=== PATIENT | male | born 1960 | race Caucasian/White ===

== ENCOUNTER 2020-11-02 05:39 | Inpatient (IN) | payer MEDICAID ==
[~2020-11-02] VITALS: Ht 177.8 cm; Wt 118.0 kg
[~2020-11-02 05:39] MED LIST: ASPI-543 PO; ATOR10TA PO; CHOL20007 PO; CLOP75TA41 PO; MET50T PO
[2020-11-02 06:33] LABS: Basophils # (auto) 0 10 ^3/uL (0-0.2); Basophils % (auto) 0.3 % (0.0-2.0); Eosinophils # (auto) 0 10 ^3/uL (0-0.8); Hematocrit 44.2 % (41.0-53.0); Hemoglobin 15.6 g/dL (13.5-17.5); Lymphocytes # (auto) 0.6 10 ^3/uL (0.4-5.4); Lymphocytes % (auto) 9.9 % (10.0-50.0); Mean Corpuscular Hemoglobin 32.5 pg (28.0-32.0); Mean Corpuscular Hgb Conc. 35.4 g/dL (32.0-36.0); Monocytes # (auto) 0.4 10 ^3/uL (0-1.3); Monocytes % (auto) 7.1 % (0.0-12.0); Neutrophils # (auto) 5.1 10 ^3/uL (1.6-8.6); Neutrophils % (auto) 82.7 % (37.0-80.0); Nucleated Red Blood Cells % 0.1 %; Platelet Count (auto) 111 10^3/uL (140-450); Red Cell Distribution Width 13.5 % (11.8-14.3); White Blood Cell 6.2 10^3/uL (4.4-10.8)
[2020-11-02 06:47] LABS: INR 3.39 (0.9-1.15); Partial Thromboplastin Time 48.1 sec (23.0-31.2)
[2020-11-02 06:51] LABS: Anion Gap 10 (5-15); Blood Urea Nitrogen 24 mg/dL (7-18); Carbon Dioxide 20 mmol/L (21-32); Chloride 99 mmol/L (98-107); Glucose 122 mg/dL (74-106); Potassium 3.7 mmol/L (3.5-5.1); Sodium 129 mmol/L (136-145)
[2020-11-02 06:59] LABS: Alanine Aminotransferase 46 U/L (16-61); Albumin 3.1 g/dL (3.4-5.0); Alkaline Phosphatase 58 U/L (45-117); Aspartate Aminotransferase 93 U/L (15-37); BUN/Creatinine Ratio 17.3; Bilirubin, Total 1.1 mg/dL (0.2-1.0); GFR African American 67 mL/min; GFR Non-African American 55 mL/min
[2020-11-02] MEDS ORDERED: cefTRIAXone 1GM/50ML D5W 50 ML IV ONE (07:45)
[2020-11-02] MEDS ORDERED: AMIODARONE HCL 150 MG in D5W 5% 100 ML IV ONE (07:45)
[2020-11-02] MEDS ORDERED: AMIODARONE 450mg/250ml AE 250 ML IV SCH (08:00)
[2020-11-02] MEDS ORDERED: AZITHROMYCIN 500MG/ 250ML 250 ML IV ONE (08:15)
[2020-11-02] MEDS ORDERED: DexAMETHasone SOD PHOS 10MG/1ML VIAL INJ IV ONE (08:15)
[2020-11-02] MEDS: NOREPINEPHRINE 8 MG/250ML KIT 250 ML IV SCH (11:46)
[2020-11-02] MEDS: AMIODARONE 450mg/250ml AE 250 ML IV SCH ×2 (14:00→22:17)
[2020-11-02] MEDS ORDERED: ACETAMINOPHEN 325 MG TAB PO PRN (14:45)
[2020-11-02] MEDS ORDERED: MORPHINE SULF INJ 2 MG/ML SYRINGE 1ML IV PRN (14:45)
[2020-11-02] MEDS ORDERED: ONDANSETRON HCL 4 MG/2 ML VIAL IV PRN (14:45)
[2020-11-02] MEDS ORDERED: NITROGLYCERIN 0.4 MG SL TAB SL PRN (14:45)
[2020-11-02] MEDS ORDERED: DOCUSATE SOD 100 MG CAP PO PRN (14:45)
[2020-11-02] MEDS ORDERED: TEMAZEPAM 15 MG CAP PO PRN (14:45)
[2020-11-02] MEDS ORDERED: MORPHINE SULFATE 4 MG/ML SYR/VIAL IV PRN (14:45)
[2020-11-02] MEDS: ENOXAPARIN SOD 100 MG/1 ML SYRINGE SC SCH (14:48)
[2020-11-02] MEDS: FAMOTIDINE 20 MG TAB PO SCH (22:22)
[2020-11-03] MEDS: ENOXAPARIN SOD 100 MG/1 ML SYRINGE SC SCH ×2 (03:15→14:48)
[2020-11-03 05:20] LABS: Basophils # (auto) 0 10 ^3/uL (0-0.2); Basophils % (auto) 0.1 % (0.0-2.0); Eosinophils # (auto) 0 10 ^3/uL (0-0.8); Hematocrit 40.9 % (41.0-53.0); Hemoglobin 14.5 g/dL (13.5-17.5); Lymphocytes # (auto) 0.7 10 ^3/uL (0.4-5.4); Lymphocytes % (auto) 9.2 % (10.0-50.0); Mean Corpuscular Hemoglobin 32.3 pg (28.0-32.0); Mean Corpuscular Hgb Conc. 35.4 g/dL (32.0-36.0); Mean Corpuscular Volume 91.2 fL (80.0-100.0); Monocytes # (auto) 0.6 10 ^3/uL (0-1.3); Monocytes % (auto) 7.6 % (0.0-12.0); Neutrophils # (auto) 6.1 10 ^3/uL (1.6-8.6); Neutrophils % (auto) 83.1 % (37.0-80.0); Platelet Count (auto) 113 10^3/uL (140-450); Red Blood Cells 4.49 10^6/uL (4.5-5.90); Red Cell Distribution Width 13.2 % (11.8-14.3); White Blood Cell 7.4 10^3/uL (4.4-10.8)
[2020-11-03 05:37] LABS: Albumin 2.7 g/dL (3.4-5.0); Calcium 7.5 mg/dL (8.5-10.1); Potassium 4.1 mmol/L (3.5-5.1)
[2020-11-03 05:41] LABS: BUN/Creatinine Ratio 19.6; Bilirubin, Total 0.6 mg/dL (0.2-1.0); Total Protein 6.2 g/dL (6.4-8.2)
[2020-11-03] MEDS: AMIODARONE 450mg/250ml AE 250 ML IV SCH (06:00)
[2020-11-03] MEDS: NOREPINEPHRINE 8 MG/250ML KIT 250 ML IV SCH (07:45)
[2020-11-03] MEDS: FAMOTIDINE 20 MG TAB PO SCH (10:00)
[2020-11-03] MEDS: ZINC SULFATE 220mg CAP or TAB PO SCH (10:00)
[2020-11-03] MEDS: DexAMETHasone SOD PHOS 10MG/1ML VIAL INJ IV SCH (11:11)
[2020-11-03] MEDS: HYDROcodone-ACET 5/325MG TAB PO PRN (11:11)
[2020-11-03] MEDS: AZITHROMYCIN 500MG/ 250ML 250 ML IV SCH (14:00)
[2020-11-03] MEDS ORDERED: ASPirin 81 mg TAB PO ONE (16:00)
[2020-11-03] MEDS: dilTIAZem 25 MG/5 ML VIAL IV SCH ×2 (16:15→17:40)
[2020-11-04] MEDS: dilTIAZem 25 MG/5 ML VIAL IV SCH ×2 (01:29→06:11)
[2020-11-04] MEDS: FAMOTIDINE 20 MG TAB PO SCH ×3 (01:29→22:00)
[2020-11-04 05:32] LABS: Basophils # (auto) 0 10 ^3/uL (0-0.2); Basophils % (auto) 0.1 % (0.0-2.0); Eosinophils # (auto) 0 10 ^3/uL (0-0.8); Hematocrit 42.4 % (41.0-53.0); Hemoglobin 14.7 g/dL (13.5-17.5); Lymphocytes # (auto) 0.6 10 ^3/uL (0.4-5.4); Lymphocytes % (auto) 5.2 % (10.0-50.0); Mean Corpuscular Hemoglobin 31.9 pg (28.0-32.0); Mean Corpuscular Hgb Conc. 34.6 g/dL (32.0-36.0); Mean Corpuscular Volume 92.1 fL (80.0-100.0); Monocytes # (auto) 0.5 10 ^3/uL (0-1.3); Monocytes % (auto) 4.7 % (0.0-12.0); Neutrophils # (auto) 10.4 10 ^3/uL (1.6-8.6); Platelet Count (auto) 147 10^3/uL (140-450); Red Cell Distribution Width 13.7 % (11.8-14.3); White Blood Cell 11.6 10^3/uL (4.4-10.8)
[2020-11-04 05:49] LABS: Calcium 7.7 mg/dL (8.5-10.1); Potassium 4.5 mmol/L (3.5-5.1)
[2020-11-04 06:07] LABS: BUN/Creatinine Ratio 22.5
[2020-11-04] MEDS: NOREPINEPHRINE 8 MG/250ML KIT 250 ML IV SCH (07:45)
[2020-11-04 08:10] LABS: INR 5.86 (0.9-1.15)
[2020-11-04] MEDS ORDERED: REMDESIVIR PER PHARMACY 0 ML IV SCH (10:00)
[2020-11-04] MEDS ORDERED: ASPirin-EC 81 mg tab PO SCH (10:00)
[2020-11-04] MEDS ORDERED: ENOXAPARIN SOD 100 MG/1 ML SYRINGE SC SCH (10:00)
[2020-11-04] MEDS: ENOXAPARIN SOD 100 MG/1 ML SYRINGE SC SCH ×2 (10:34→22:00)
[2020-11-04] MEDS: CLOPIDOGREL BISULFATE 75 MG TAB PO SCH (10:38)
[2020-11-04] MEDS: DexAMETHasone SOD PHOS 10MG/1ML VIAL INJ IV SCH (10:47)
[2020-11-04] MEDS: PANTOPRAZOLE 40 MG/10 ML VIAL INJ IV SCH (10:49)
[2020-11-04] MEDS: ZINC SULFATE 220mg CAP or TAB PO SCH (10:49)
[2020-11-04] MEDS: AZITHROMYCIN 500MG/ 250ML 250 ML IV SCH (10:49)
[2020-11-04] MEDS: ASCORBIC ACID 500 MG TAB PO SCH (10:50)
[2020-11-04] MEDS: CHOLECALCIFEROL (VITD3) 1,000UNIT=25mCg TAB PO SCH (10:50)
[2020-11-04] MEDS: AMIODARONE 450mg/250ml AE 250 ML IV SCH (11:06)
[2020-11-04] MEDS: HYDROcodone-ACET 5/325MG TAB PO PRN (11:09)
[2020-11-04] MEDS ORDERED: dilTIAZem 25 MG/5 ML VIAL IV PRN (12:15)
[2020-11-04 15:24] LABS: Albumin 2.8 g/dL (3.4-5.0); Bilirubin, Direct 0.2 mg/dL (0-0.2)
[2020-11-04 15:26] LABS: Bilirubin, Total 0.7 mg/dL (0.2-1.0); Total Protein 6.4 g/dL (6.4-8.2)
[2020-11-04] MEDS ORDERED: REMDESIVIR 200 MG in NS 210ml LOADING DOSE ADULT IV ONE (17:00)
[2020-11-04] MEDS: dilTIAZem 25 MG/5 ML VIAL IV PRN (19:33)
[2020-11-04] MEDS: AMIODARONE HCL 200 MG TAB PO SCH (22:00)
[2020-11-05 05:38] LABS: Basophils # (auto) 0 10 ^3/uL (0-0.2); Basophils % (auto) 0.1 % (0.0-2.0); Eosinophils # (auto) 0 10 ^3/uL (0-0.8); Hematocrit 43.5 % (41.0-53.0); Hemoglobin 15.3 g/dL (13.5-17.5); Lymphocytes # (auto) 0.5 10 ^3/uL (0.4-5.4); Lymphocytes % (auto) 4.3 % (10.0-50.0); Mean Corpuscular Hemoglobin 32.2 pg (28.0-32.0); Mean Corpuscular Hgb Conc. 35.1 g/dL (32.0-36.0); Mean Corpuscular Volume 91.8 fL (80.0-100.0); Monocytes # (auto) 0.5 10 ^3/uL (0-1.3); Monocytes % (auto) 4.6 % (0.0-12.0); Neutrophils # (auto) 9.6 10 ^3/uL (1.6-8.6); Platelet Count (auto) 166 10^3/uL (140-450); Red Blood Cells 4.74 10^6/uL (4.5-5.90); Red Cell Distribution Width 13.4 % (11.8-14.3); White Blood Cell 10.6 10^3/uL (4.4-10.8)
[2020-11-05] MEDS: dilTIAZem 25 MG/5 ML VIAL IV PRN ×2 (05:38→14:52)
[2020-11-05 05:52] LABS: BUN/Creatinine Ratio 22.8; Calcium 7.9 mg/dL (8.5-10.1); Magnesium 2.6 mg/dL (1.6-2.6); Potassium 4.3 mmol/L (3.5-5.1)
[2020-11-05 05:55] LABS: Total Protein 6.6 g/dL (6.4-8.2)
[2020-11-05 06:03] LABS: INR 5.01 (0.9-1.15)
[2020-11-05] MEDS: NOREPINEPHRINE 8 MG/250ML KIT 250 ML IV SCH (08:40)
[2020-11-05] MEDS: PANTOPRAZOLE 40 MG/10 ML VIAL INJ IV SCH (10:00)
[2020-11-05] MEDS: AMIODARONE HCL 200 MG TAB PO SCH ×2 (10:21→21:54)
[2020-11-05] MEDS: ZINC SULFATE 220mg CAP or TAB PO SCH (10:21)
[2020-11-05] MEDS: AZITHROMYCIN 500MG/ 250ML 250 ML IV SCH (10:22)
[2020-11-05] MEDS: DexAMETHasone SOD PHOS 10MG/1ML VIAL INJ IV SCH (10:22)
[2020-11-05] MEDS: CHOLECALCIFEROL (VITD3) 1,000UNIT=25mCg TAB PO SCH (10:22)
[2020-11-05] MEDS: FAMOTIDINE 20 MG TAB PO SCH ×2 (10:22→22:04)
[2020-11-05] MEDS: CLOPIDOGREL BISULFATE 75 MG TAB PO SCH (10:22)
[2020-11-05] MEDS: ASCORBIC ACID 500 MG TAB PO SCH (10:22)
[2020-11-05 10:45] LABS: CRP High Sensitivity 3.21 mg/dL (< 0.3)
[2020-11-05] MEDS: REMDESIVIR 100 MG in SODIUM CHL 0.9% 250 ML IV SCH (14:52)
[2020-11-05] MEDS: METOPROLOL TARTRATE 25 MG TAB PO SCH ×4 (15:00→22:04)
[2020-11-05] MEDS: Glucerna Carbsteady SHAKE Vanilla 8oz PO SCH (17:49)
[2020-11-06 06:17] LABS: Basophils # (auto) 0 10 ^3/uL (0-0.2); Basophils % (auto) 0.1 % (0.0-2.0); Eosinophils # (auto) 0 10 ^3/uL (0-0.8); Hematocrit 43.6 % (41.0-53.0); Hemoglobin 15.2 g/dL (13.5-17.5); Lymphocytes # (auto) 0.5 10 ^3/uL (0.4-5.4); Lymphocytes % (auto) 3.8 % (10.0-50.0); Mean Corpuscular Hemoglobin 32.1 pg (28.0-32.0); Mean Corpuscular Volume 91.7 fL (80.0-100.0); Monocytes # (auto) 0.8 10 ^3/uL (0-1.3); Monocytes % (auto) 5.4 % (0.0-12.0); Neutrophils % (auto) 90.7 % (37.0-80.0); Nucleated Red Blood Cells % 0.1 %; Platelet Count (auto) 127 10^3/uL (140-450); Red Blood Cells 4.75 10^6/uL (4.5-5.90); Red Cell Distribution Width 13.3 % (11.8-14.3); White Blood Cell 14.3 10^3/uL (4.4-10.8)
[2020-11-06] MEDS: METOPROLOL TARTRATE 25 MG TAB PO SCH ×3 (06:25→20:37)
[2020-11-06 07:03] LABS: Albumin 2.9 g/dL (3.4-5.0); Calcium 7.8 mg/dL (8.5-10.1); Magnesium 2.4 mg/dL (1.6-2.6); Potassium 4.4 mmol/L (3.5-5.1)
[2020-11-06 07:05] LABS: INR 5.48 (0.9-1.15)
[2020-11-06 07:12] LABS: BUN/Creatinine Ratio 25.6; Bilirubin, Total 1.8 mg/dL (0.2-1.0); Total Protein 6.3 g/dL (6.4-8.2)
[2020-11-06 07:33] LABS: CRP High Sensitivity 2.1 mg/dL (< 0.3)
[2020-11-06] MEDS: PANTOPRAZOLE 40 MG/10 ML VIAL INJ IV SCH (08:55)
[2020-11-06] MEDS: FAMOTIDINE 20 MG TAB PO SCH ×2 (08:55→20:37)
[2020-11-06] MEDS: Glucerna Carbsteady SHAKE Vanilla 8oz PO SCH ×3 (09:02→18:00)
[2020-11-06] MEDS: NOREPINEPHRINE 8 MG/250ML KIT 250 ML IV SCH (09:02)
[2020-11-06] MEDS: DexAMETHasone SOD PHOS 10MG/1ML VIAL INJ IV SCH (09:52)
[2020-11-06] MEDS: AZITHROMYCIN 500MG/ 250ML 250 ML IV SCH (09:55)
[2020-11-06] MEDS: ZINC SULFATE 220mg CAP or TAB PO SCH (09:56)
[2020-11-06] MEDS: AMIODARONE HCL 200 MG TAB PO SCH ×2 (09:59→20:36)
[2020-11-06] MEDS: CHOLECALCIFEROL (VITD3) 1,000UNIT=25mCg TAB PO SCH (10:00)
[2020-11-06] MEDS: ASCORBIC ACID 500 MG TAB PO SCH (10:00)
[2020-11-06] MEDS: CLOPIDOGREL BISULFATE 75 MG TAB PO SCH (10:03)
[2020-11-06] MEDS: dilTIAZem 25 MG/5 ML VIAL IV PRN ×2 (13:01→20:35)
[2020-11-06] MEDS: REMDESIVIR 100 MG in SODIUM CHL 0.9% 250 ML IV SCH (17:39)
[2020-11-06] MEDS: LORazepam 0.5 MG TAB PO PRN (17:41)
[2020-11-07] MEDS: METOPROLOL TARTRATE 25 MG TAB PO SCH ×3 (05:49→21:53)
[2020-11-07 07:05] LABS: Basophils # (auto) 0 10 ^3/uL (0-0.2); Basophils % (auto) 0.2 % (0.0-2.0); Eosinophils # (auto) 0 10 ^3/uL (0-0.8); Hematocrit 43.5 % (41.0-53.0); Hemoglobin 15.2 g/dL (13.5-17.5); Lymphocytes # (auto) 0.6 10 ^3/uL (0.4-5.4); Lymphocytes % (auto) 4.1 % (10.0-50.0); Mean Corpuscular Hemoglobin 31.9 pg (28.0-32.0); Mean Corpuscular Hgb Conc. 34.9 g/dL (32.0-36.0); Mean Corpuscular Volume 91.4 fL (80.0-100.0); Monocytes # (auto) 0.8 10 ^3/uL (0-1.3); Monocytes % (auto) 5.1 % (0.0-12.0); Neutrophils # (auto) 14.2 10 ^3/uL (1.6-8.6); Neutrophils % (auto) 90.6 % (37.0-80.0); Nucleated Red Blood Cells % 0.4 %; Platelet Count (auto) 97 10^3/uL (140-450); Red Blood Cells 4.76 10^6/uL (4.5-5.90); Red Cell Distribution Width 13.5 % (11.8-14.3); White Blood Cell 15.6 10^3/uL (4.4-10.8)
[2020-11-07 07:27] LABS: Potassium 4.6 mmol/L (3.5-5.1)
[2020-11-07] MEDS: NOREPINEPHRINE 8 MG/250ML KIT 250 ML IV SCH (07:45)
[2020-11-07 07:54] LABS: Albumin 2.8 g/dL (3.4-5.0); BUN/Creatinine Ratio 27.2; Bilirubin, Total 2.2 mg/dL (0.2-1.0); CRP High Sensitivity 1.9 mg/dL (< 0.3); Calcium 7.8 mg/dL (8.5-10.1); Magnesium 2.1 mg/dL (1.6-2.6)
[2020-11-07 08:42] LABS: INR 5.65 (0.9-1.15)
[2020-11-07] MEDS: Glucerna Carbsteady SHAKE Vanilla 8oz PO SCH ×3 (09:39→18:00)
[2020-11-07] MEDS: DexAMETHasone SOD PHOS 10MG/1ML VIAL INJ IV SCH (09:52)
[2020-11-07] MEDS: PANTOPRAZOLE 40 MG/10 ML VIAL INJ IV SCH (09:53)
[2020-11-07] MEDS: AZITHROMYCIN 500MG/ 250ML 250 ML IV SCH (09:54)
[2020-11-07] MEDS: FAMOTIDINE 20 MG TAB PO SCH ×2 (09:54→21:50)
[2020-11-07] MEDS: AMIODARONE HCL 200 MG TAB PO SCH ×2 (09:54→21:50)
[2020-11-07] MEDS: ZINC SULFATE 220mg CAP or TAB PO SCH (09:54)
[2020-11-07] MEDS: CLOPIDOGREL BISULFATE 75 MG TAB PO SCH (09:54)
[2020-11-07] MEDS: CHOLECALCIFEROL (VITD3) 1,000UNIT=25mCg TAB PO SCH (09:55)
[2020-11-07] MEDS: ASCORBIC ACID 500 MG TAB PO SCH (09:55)
[2020-11-07] MEDS: dilTIAZem 25 MG/5 ML VIAL IV PRN (11:55)
[2020-11-07] MEDS: REMDESIVIR 100 MG in SODIUM CHL 0.9% 250 ML IV SCH (15:00)
[2020-11-07 15:30] VITALS: BP 101/76
[2020-11-07 15:45] VITALS: BP 87/63
[2020-11-07 16:00] VITALS: BP 110/76
[2020-11-08 06:12] LABS: Hematocrit 42.9 % (41.0-53.0); Hemoglobin 14.9 g/dL (13.5-17.5); Mean Corpuscular Hemoglobin 31.7 pg (28.0-32.0); Mean Corpuscular Hgb Conc. 34.8 g/dL (32.0-36.0); Mean Corpuscular Volume 90.9 fL (80.0-100.0); Platelet Count (auto) 82 10^3/uL (140-450); Red Blood Cells 4.72 10^6/uL (4.5-5.90); Red Cell Distribution Width 13.4 % (11.8-14.3); White Blood Cell 12.8 10^3/uL (4.4-10.8)
[2020-11-08 06:18] LABS: Basophils % (manual) 0 (0.0-2.0); Blast Cells 0; Eosinophils % (manual) 0 (0-7); Myelocytes % 0; Promyelocytes % 0; Reactive Lymphocytes 0
[2020-11-08] MEDS: METOPROLOL TARTRATE 25 MG TAB PO SCH ×2 (06:27→22:29)
[2020-11-08 06:30] LABS: Albumin 2.8 g/dL (3.4-5.0); Calcium 7.8 mg/dL (8.5-10.1); Magnesium 2.3 mg/dL (1.6-2.6); Potassium 4.9 mmol/L (3.5-5.1)
[2020-11-08 06:39] LABS: BUN/Creatinine Ratio 26.1; Bilirubin, Total 2.1 mg/dL (0.2-1.0); CRP High Sensitivity 2.34 mg/dL (< 0.3)
[2020-11-08 06:44] LABS: INR 3.49 (0.9-1.15)
[2020-11-08 07:21] LABS: Band Neutrophils % (manual) 1; Lymphocytes % (manual) 5 (10.0-50.0); Metamyelocytes % 2; Monocytes % (manual) 6 (0-12)
[2020-11-08] MEDS: NOREPINEPHRINE 8 MG/250ML KIT 250 ML IV SCH (07:45)
[2020-11-08] MEDS: Glucerna Carbsteady SHAKE Vanilla 8oz PO SCH ×3 (08:00→18:06)
[2020-11-08] MEDS: CLOPIDOGREL BISULFATE 75 MG TAB PO SCH (09:13)
[2020-11-08] MEDS: AZITHROMYCIN 500MG/ 250ML 250 ML IV SCH (09:13)
[2020-11-08] MEDS: AMIODARONE HCL 200 MG TAB PO SCH ×2 (09:13→22:29)
[2020-11-08] MEDS: DexAMETHasone SOD PHOS 10MG/1ML VIAL INJ IV SCH (09:13)
[2020-11-08] MEDS: FAMOTIDINE 20 MG TAB PO SCH ×2 (09:13→22:29)
[2020-11-08] MEDS: PANTOPRAZOLE 40 MG/10 ML VIAL INJ IV SCH (09:13)
[2020-11-08] MEDS: ZINC SULFATE 220mg CAP or TAB PO SCH (09:13)
[2020-11-08] MEDS: CHOLECALCIFEROL (VITD3) 1,000UNIT=25mCg TAB PO SCH (09:14)
[2020-11-08] MEDS: ASCORBIC ACID 500 MG TAB PO SCH (09:14)
[2020-11-08] MEDS: REMDESIVIR 100 MG in SODIUM CHL 0.9% 250 ML IV SCH (21:29)
[2020-11-09] MEDS: METOPROLOL TARTRATE 25 MG TAB PO SCH ×3 (06:16→21:49)
[2020-11-09 06:55] LABS: Potassium 5.3 mmol/L (3.5-5.1)
[2020-11-09 06:58] LABS: Hematocrit 44.1 % (41.0-53.0); Hemoglobin 14.9 g/dL (13.5-17.5); Mean Corpuscular Hemoglobin 31.3 pg (28.0-32.0); Mean Corpuscular Hgb Conc. 33.8 g/dL (32.0-36.0); Mean Corpuscular Volume 92.5 fL (80.0-100.0); Platelet Count (auto) 105 10^3/uL (140-450); Red Blood Cells 4.77 10^6/uL (4.5-5.90); Red Cell Distribution Width 13.4 % (11.8-14.3); White Blood Cell 13.5 10^3/uL (4.4-10.8)
[2020-11-09 07:02] LABS: INR 3.36 (0.9-1.15)
[2020-11-09 07:15] LABS: Albumin 2.7 g/dL (3.4-5.0); BUN/Creatinine Ratio 28.9; Bilirubin, Total 1.8 mg/dL (0.2-1.0); CRP High Sensitivity 1.58 mg/dL (< 0.3); Calcium 7.9 mg/dL (8.5-10.1); Magnesium 2.4 mg/dL (1.6-2.6)
[2020-11-09 07:22] LABS: Basophils % (manual) 0 (0.0-2.0); Blast Cells 0; Eosinophils % (manual) 0 (0-7); Metamyelocytes % 0; Myelocytes % 0; Promyelocytes % 0; Reactive Lymphocytes 0
[2020-11-09] MEDS: NOREPINEPHRINE 8 MG/250ML KIT 250 ML IV SCH (07:45)
[2020-11-09] MEDS: Glucerna Carbsteady SHAKE Vanilla 8oz PO SCH ×3 (08:00→18:00)
[2020-11-09] MEDS: DexAMETHasone SOD PHOS 10MG/1ML VIAL INJ IV SCH (08:36)
[2020-11-09] MEDS: AZITHROMYCIN 500MG/ 250ML 250 ML IV SCH (08:36)
[2020-11-09] MEDS: PANTOPRAZOLE 40 MG/10 ML VIAL INJ IV SCH (08:36)
[2020-11-09] MEDS: AMIODARONE HCL 200 MG TAB PO SCH ×2 (08:36→21:49)
[2020-11-09] MEDS: FAMOTIDINE 20 MG TAB PO SCH ×2 (08:36→21:49)
[2020-11-09] MEDS: ZINC SULFATE 220mg CAP or TAB PO SCH (08:36)
[2020-11-09] MEDS: CHOLECALCIFEROL (VITD3) 1,000UNIT=25mCg TAB PO SCH (08:37)
[2020-11-09] MEDS: ASCORBIC ACID 500 MG TAB PO SCH (08:37)
[2020-11-09] MEDS: CLOPIDOGREL BISULFATE 75 MG TAB PO SCH (08:37)
[2020-11-09 08:47] LABS: Band Neutrophils % (manual) 2; Lymphocytes % (manual) 9 (10.0-50.0); Monocytes % (manual) 7 (0-12)
[2020-11-09] MEDS: D5W/SOD CHL 0.45% 1,000 ML IV SCH (13:45)
[2020-11-09] MEDS: dilTIAZem 25 MG/5 ML VIAL IV PRN (15:17)
[2020-11-09] MEDS ORDERED: FUROSEMIDE 40 MG/4 ML VIAL IV ONE (17:45)
[2020-11-10] MEDS: METOPROLOL TARTRATE 25 MG TAB PO SCH ×4 (06:00→23:35)
[2020-11-10 07:23] LABS: INR 2.84 (0.9-1.15)
[2020-11-10] MEDS: Glucerna Carbsteady SHAKE Vanilla 8oz PO SCH ×3 (08:00→19:01)
[2020-11-10 09:09] LABS: Hematocrit 43.7 % (41.0-53.0); Hemoglobin 15.1 g/dL (13.5-17.5); Mean Corpuscular Hemoglobin 31.4 pg (28.0-32.0); Mean Corpuscular Hgb Conc. 34.5 g/dL (32.0-36.0); Mean Corpuscular Volume 91.1 fL (80.0-100.0); Platelet Count (auto) 116 10^3/uL (140-450); Red Cell Distribution Width 13.8 % (11.8-14.3); White Blood Cell 14.3 10^3/uL (4.4-10.8)
[2020-11-10] MEDS: ZINC SULFATE 220mg CAP or TAB PO SCH (09:11)
[2020-11-10] MEDS: AZITHROMYCIN 500MG/ 250ML 250 ML IV SCH (09:11)
[2020-11-10] MEDS: DexAMETHasone SOD PHOS 10MG/1ML VIAL INJ IV SCH (09:11)
[2020-11-10] MEDS: CLOPIDOGREL BISULFATE 75 MG TAB PO SCH (09:11)
[2020-11-10] MEDS: FAMOTIDINE 20 MG TAB PO SCH ×2 (09:11→22:05)
[2020-11-10] MEDS: AMIODARONE HCL 200 MG TAB PO SCH ×2 (09:11→22:05)
[2020-11-10 09:20] LABS: Albumin 2.7 g/dL (3.4-5.0); Calcium 7.8 mg/dL (8.5-10.1); Potassium 4.8 mmol/L (3.5-5.1)
[2020-11-10 09:24] LABS: BUN/Creatinine Ratio 26.7; Bilirubin, Total 1.6 mg/dL (0.2-1.0)
[2020-11-10 09:28] LABS: Basophils % (manual) 0 (0.0-2.0); Blast Cells 0; Eosinophils % (manual) 0 (0-7); Promyelocytes % 0; Reactive Lymphocytes 0
[2020-11-10] MEDS: D5W/SOD CHL 0.45% 1,000 ML IV SCH (09:45)
[2020-11-10] MEDS: PANTOPRAZOLE 40 MG/10 ML VIAL INJ IV SCH (09:48)
[2020-11-10] MEDS: CHOLECALCIFEROL (VITD3) 1,000UNIT=25mCg TAB PO SCH (09:51)
[2020-11-10] MEDS: ASCORBIC ACID 500 MG TAB PO SCH (09:51)
[2020-11-10] MEDS: dilTIAZem 25 MG/5 ML VIAL IV PRN (10:43)
[2020-11-10] MEDS: NOREPINEPHRINE 8 MG/250ML KIT 250 ML IV SCH (11:22)
[2020-11-10 12:00] LABS: Band Neutrophils % (manual) 1; Lymphocytes % (manual) 8 (10.0-50.0); Metamyelocytes % 1; Monocytes % (manual) 1 (0-12); Myelocytes % 3
[2020-11-10] MEDS: ENOXAPARIN SOD 100 MG/1 ML SYRINGE SC SCH (22:05)
[2020-11-11] MEDS: D5W/SOD CHL 0.45% 1,000 ML IV SCH (05:53)
[2020-11-11] MEDS: METOPROLOL TARTRATE 25 MG TAB PO SCH ×3 (06:15→22:00)
[2020-11-11 07:34] LABS: INR 1.77 (0.9-1.15)
[2020-11-11] MEDS: Glucerna Carbsteady SHAKE Vanilla 8oz PO SCH ×3 (08:00→18:00)
[2020-11-11] MEDS: NOREPINEPHRINE 8 MG/250ML KIT 250 ML IV SCH (09:45)
[2020-11-11] MEDS: AZITHROMYCIN 500MG/ 250ML 250 ML IV SCH (10:00)
[2020-11-11] MEDS: CLOPIDOGREL BISULFATE 75 MG TAB PO SCH (10:00)
[2020-11-11] MEDS: ASCORBIC ACID 500 MG TAB PO SCH (10:00)
[2020-11-11] MEDS: FAMOTIDINE 20 MG TAB PO SCH ×2 (10:00→22:00)
[2020-11-11] MEDS: ZINC SULFATE 220mg CAP or TAB PO SCH (10:00)
[2020-11-11] MEDS: PANTOPRAZOLE 40 MG/10 ML VIAL INJ IV SCH (10:00)
[2020-11-11] MEDS: CHOLECALCIFEROL (VITD3) 1,000UNIT=25mCg TAB PO SCH (10:00)
[2020-11-11] MEDS: ENOXAPARIN SOD 100 MG/1 ML SYRINGE SC SCH ×2 (10:00→22:00)
[2020-11-11] MEDS: AMIODARONE HCL 200 MG TAB PO SCH ×2 (10:00→22:00)
[2020-11-11] MEDS: DexAMETHasone SOD PHOS 10MG/1ML VIAL INJ IV SCH (10:00)
[2020-11-11 10:25] LABS: Hematocrit 43.3 % (41.0-53.0); Mean Corpuscular Hemoglobin 31.6 pg (28.0-32.0); Mean Corpuscular Hgb Conc. 34.7 g/dL (32.0-36.0); Mean Corpuscular Volume 91.1 fL (80.0-100.0); Platelet Count (auto) 101 10^3/uL (140-450); Red Blood Cells 4.75 10^6/uL (4.5-5.90); Red Cell Distribution Width 13.4 % (11.8-14.3); White Blood Cell 15.6 10^3/uL (4.4-10.8)
[2020-11-11 10:38] LABS: Band Neutrophils % (manual) 0; Basophils % (manual) 0 (0.0-2.0); Blast Cells 0; Eosinophils % (manual) 0 (0-7); Promyelocytes % 0; Reactive Lymphocytes 0
[2020-11-11 10:42] LABS: Potassium 4.6 mmol/L (3.5-5.1)
[2020-11-11 10:52] LABS: Albumin 2.5 g/dL (3.4-5.0); BUN/Creatinine Ratio 29.8; Bilirubin, Total 1.5 mg/dL (0.2-1.0); CRP High Sensitivity 0.9 mg/dL (< 0.3); Calcium 7.8 mg/dL (8.5-10.1); Total Protein 5.6 g/dL (6.4-8.2)
[2020-11-11 11:45] LABS: Lymphocytes % (manual) 5 (10.0-50.0); Metamyelocytes % 1; Monocytes % (manual) 2 (0-12); Myelocytes % 1
[2020-11-11] MEDS: dilTIAZem 25 MG/5 ML VIAL IV PRN (17:56)
[2020-11-12] MEDS: D5W/SOD CHL 0.45% 1,000 ML IV SCH ×2 (01:45→22:01)
[2020-11-12] MEDS: METOPROLOL TARTRATE 25 MG TAB PO SCH ×3 (06:18→22:01)
[2020-11-12] MEDS: NOREPINEPHRINE 8 MG/250ML KIT 250 ML IV SCH (07:45)
[2020-11-12] MEDS: Glucerna Carbsteady SHAKE Vanilla 8oz PO SCH ×3 (08:00→18:00)
[2020-11-12 08:12] LABS: INR 1.22 (0.9-1.15)
[2020-11-12] MEDS: AZITHROMYCIN 500MG/ 250ML 250 ML IV SCH (09:57)
[2020-11-12] MEDS: PANTOPRAZOLE 40 MG/10 ML VIAL INJ IV SCH (09:57)
[2020-11-12] MEDS: DexAMETHasone SOD PHOS 10MG/1ML VIAL INJ IV SCH (09:57)
[2020-11-12] MEDS: FAMOTIDINE 20 MG TAB PO SCH ×2 (09:58→22:01)
[2020-11-12] MEDS: ZINC SULFATE 220mg CAP or TAB PO SCH (09:58)
[2020-11-12] MEDS: CLOPIDOGREL BISULFATE 75 MG TAB PO SCH (09:58)
[2020-11-12] MEDS: AMIODARONE HCL 200 MG TAB PO SCH ×2 (10:05→22:01)
[2020-11-12] MEDS: ASCORBIC ACID 500 MG TAB PO SCH (10:26)
[2020-11-12] MEDS: ENOXAPARIN SOD 100 MG/1 ML SYRINGE SC SCH ×2 (10:26→22:01)
[2020-11-12] MEDS: CHOLECALCIFEROL (VITD3) 1,000UNIT=25mCg TAB PO SCH (10:26)
[2020-11-12 14:00] LABS: Hematocrit 42.2 % (41.0-53.0); Hemoglobin 14.5 g/dL (13.5-17.5); Mean Corpuscular Hemoglobin 31.2 pg (28.0-32.0); Mean Corpuscular Hgb Conc. 34.3 g/dL (32.0-36.0); Mean Corpuscular Volume 91.1 fL (80.0-100.0); Platelet Count (auto) 109 10^3/uL (140-450); Red Blood Cells 4.64 10^6/uL (4.5-5.90); Red Cell Distribution Width 13.9 % (11.8-14.3); White Blood Cell 17.8 10^3/uL (4.4-10.8)
[2020-11-12 14:03] LABS: Basophils % (manual) 0 (0.0-2.0); Blast Cells 0; Eosinophils % (manual) 0 (0-7); Metamyelocytes % 0; Myelocytes % 0; Promyelocytes % 0; Reactive Lymphocytes 0
[2020-11-12 15:44] LABS: Band Neutrophils % (manual) 2; Lymphocytes % (manual) 1 (10.0-50.0); Monocytes % (manual) 5 (0-12)
[2020-11-12 16:43] LABS: Albumin 2.4 g/dL (3.4-5.0); BUN/Creatinine Ratio 27.2; Bilirubin, Total 1.1 mg/dL (0.2-1.0); CRP High Sensitivity 3.14 mg/dL (< 0.3); Calcium 7.8 mg/dL (8.5-10.1); Magnesium 2.1 mg/dL (1.6-2.6); Potassium 4.6 mmol/L (3.5-5.1); Total Protein 5.5 g/dL (6.4-8.2)
[2020-11-13] MEDS: METOPROLOL TARTRATE 25 MG TAB PO SCH ×4 (06:02→21:51)
[2020-11-13 06:20] LABS: INR 1.13 (0.9-1.15)
[2020-11-13] MEDS: NOREPINEPHRINE 8 MG/250ML KIT 250 ML IV SCH (08:53)
[2020-11-13] MEDS: Glucerna Carbsteady SHAKE Vanilla 8oz PO SCH ×3 (09:23→18:53)
[2020-11-13] MEDS: DexAMETHasone SOD PHOS 10MG/1ML VIAL INJ IV SCH (09:43)
[2020-11-13] MEDS: PANTOPRAZOLE 40 MG/10 ML VIAL INJ IV SCH (09:46)
[2020-11-13] MEDS: AZITHROMYCIN 500MG/ 250ML 250 ML IV SCH (09:46)
[2020-11-13] MEDS: ZINC SULFATE 220mg CAP or TAB PO SCH (09:46)
[2020-11-13] MEDS: AMIODARONE HCL 200 MG TAB PO SCH ×2 (09:47→21:51)
[2020-11-13] MEDS: FAMOTIDINE 20 MG TAB PO SCH ×2 (09:47→21:51)
[2020-11-13] MEDS: ASCORBIC ACID 500 MG TAB PO SCH (09:48)
[2020-11-13] MEDS: ENOXAPARIN SOD 100 MG/1 ML SYRINGE SC SCH ×2 (09:48→21:51)
[2020-11-13] MEDS: CLOPIDOGREL BISULFATE 75 MG TAB PO SCH (09:48)
[2020-11-13] MEDS: CHOLECALCIFEROL (VITD3) 1,000UNIT=25mCg TAB PO SCH (09:48)
[2020-11-13] MEDS: D5W/SOD CHL 0.45% 1,000 ML IV SCH (17:45)
[2020-11-13] MEDS: LORazepam 0.5 MG TAB PO PRN (18:03)
[2020-11-14] MEDS: NOREPINEPHRINE 8 MG/250ML KIT 250 ML IV SCH (04:55)
[2020-11-14 06:04] LABS: Hematocrit 39.6 % (41.0-53.0); Hemoglobin 13.6 g/dL (13.5-17.5); Mean Corpuscular Hemoglobin 31.7 pg (28.0-32.0); Mean Corpuscular Hgb Conc. 34.5 g/dL (32.0-36.0); Mean Corpuscular Volume 92.1 fL (80.0-100.0); Platelet Count (auto) 148 10^3/uL (140-450); Red Cell Distribution Width 13.5 % (11.8-14.3)
[2020-11-14 06:08] LABS: Band Neutrophils % (manual) 0; Basophils % (manual) 0 (0.0-2.0); Blast Cells 0; Eosinophils % (manual) 0 (0-7); Myelocytes % 0; Promyelocytes % 0; Reactive Lymphocytes 0
[2020-11-14 06:16] LABS: INR 1.11 (0.9-1.15)
[2020-11-14 06:28] LABS: Albumin 2.1 g/dL (3.4-5.0); Calcium 7.7 mg/dL (8.5-10.1)
[2020-11-14 06:39] LABS: BUN/Creatinine Ratio 24.4; Bilirubin, Total 1.1 mg/dL (0.2-1.0); CRP High Sensitivity 3.46 mg/dL (< 0.3); Total Protein 5.4 g/dL (6.4-8.2)
[2020-11-14 07:40] LABS: Lymphocytes % (manual) 4 (10.0-50.0); Metamyelocytes % 1; Monocytes % (manual) 4 (0-12)
[2020-11-14] MEDS: METOPROLOL TARTRATE 25 MG TAB PO SCH ×3 (07:55→22:00)
[2020-11-14] MEDS: Glucerna Carbsteady SHAKE Vanilla 8oz PO SCH ×3 (09:17→18:00)
[2020-11-14 10:19] VITALS: BP 91/65
[2020-11-14] MEDS: PANTOPRAZOLE 40 MG/10 ML VIAL INJ IV SCH (10:35)
[2020-11-14] MEDS: AZITHROMYCIN 500MG/ 250ML 250 ML IV SCH (11:08)
[2020-11-14 11:17] VITALS: BP 91/65
[2020-11-14] MEDS: ZINC SULFATE 220mg CAP or TAB PO SCH (11:27)
[2020-11-14] MEDS: AMIODARONE HCL 200 MG TAB PO SCH ×2 (11:27→22:00)
[2020-11-14] MEDS: LORazepam 0.5 MG TAB PO PRN (11:27)
[2020-11-14] MEDS: CLOPIDOGREL BISULFATE 75 MG TAB PO SCH (11:28)
[2020-11-14] MEDS: FAMOTIDINE 20 MG TAB PO SCH ×2 (11:28→22:00)
[2020-11-14] MEDS: CHOLECALCIFEROL (VITD3) 1,000UNIT=25mCg TAB PO SCH (11:28)
[2020-11-14] MEDS: ASCORBIC ACID 500 MG TAB PO SCH (11:28)
[2020-11-14] MEDS: ENOXAPARIN SOD 100 MG/1 ML SYRINGE SC SCH ×2 (11:28→22:00)
[2020-11-14] MEDS: D5W/SOD CHL 0.45% 1,000 ML IV SCH (14:15)
[2020-11-14] MEDS: PIPERACILLIN-TAZOB 3.375GM 100 ML IV SCH ×2 (15:20→22:00)
[2020-11-14 15:22] VITALS: BP 106/67
[2020-11-14 19:30] VITALS: BP 104/62
[2020-11-14 22:29] VITALS: BP 120/72
[2020-11-15 02:24] VITALS: BP 106/81
[2020-11-15] MEDS: PIPERACILLIN-TAZOB 3.375GM 100 ML IV SCH ×3 (06:12→22:30)
[2020-11-15] MEDS: METOPROLOL TARTRATE 25 MG TAB PO SCH ×3 (06:13→22:30)
[2020-11-15 06:59] LABS: Hematocrit 40.2 % (41.0-53.0); Hemoglobin 13.7 g/dL (13.5-17.5); Mean Corpuscular Hemoglobin 31.3 pg (28.0-32.0); Mean Corpuscular Volume 92.1 fL (80.0-100.0); Platelet Count (auto) 203 10^3/uL (140-450); Red Blood Cells 4.37 10^6/uL (4.5-5.90); Red Cell Distribution Width 13.6 % (11.8-14.3); White Blood Cell 17.1 10^3/uL (4.4-10.8)
[2020-11-15 07:17] LABS: INR 1.08 (0.9-1.15)
[2020-11-15 07:19] LABS: Basophils % (manual) 0 (0.0-2.0); Blast Cells 0; Eosinophils % (manual) 0 (0-7); Metamyelocytes % 0; Promyelocytes % 0; Reactive Lymphocytes 0
[2020-11-15 07:33] VITALS: BP 99/69
[2020-11-15] MEDS: NOREPINEPHRINE 8 MG/250ML KIT 250 ML IV SCH ×2 (07:45→15:59)
[2020-11-15 08:03] LABS: Potassium 4.7 mmol/L (3.5-5.1)
[2020-11-15] MEDS: Glucerna Carbsteady SHAKE Vanilla 8oz PO SCH ×3 (08:25→18:00)
[2020-11-15 08:36] LABS: Albumin 2.1 g/dL (3.4-5.0); BUN/Creatinine Ratio 27.3; Bilirubin, Total 1.3 mg/dL (0.2-1.0); CRP High Sensitivity 10.8 mg/dL (< 0.3); Calcium 7.3 mg/dL (8.5-10.1); Total Protein 5.9 g/dL (6.4-8.2)
[2020-11-15 09:19] LABS: Band Neutrophils % (manual) 1; Lymphocytes % (manual) 4 (10.0-50.0); Monocytes % (manual) 2 (0-12); Myelocytes % 6
[2020-11-15] MEDS: PANTOPRAZOLE 40 MG/10 ML VIAL INJ IV SCH (10:00)
[2020-11-15] MEDS: FAMOTIDINE 20 MG TAB PO SCH ×2 (10:22→22:30)
[2020-11-15] MEDS: ASCORBIC ACID 500 MG TAB PO SCH (10:22)
[2020-11-15] MEDS: CLOPIDOGREL BISULFATE 75 MG TAB PO SCH (10:22)
[2020-11-15] MEDS: CHOLECALCIFEROL (VITD3) 1,000UNIT=25mCg TAB PO SCH (10:22)
[2020-11-15] MEDS: ZINC SULFATE 220mg CAP or TAB PO SCH (10:23)
[2020-11-15] MEDS: ENOXAPARIN SOD 100 MG/1 ML SYRINGE SC SCH ×2 (10:23→22:30)
[2020-11-15] MEDS: AZITHROMYCIN 500MG/ 250ML 250 ML IV SCH (10:23)
[2020-11-15] MEDS: AMIODARONE HCL 200 MG TAB PO SCH ×2 (10:23→22:30)
[2020-11-15] MEDS: D5W/SOD CHL 0.45% 1,000 ML IV SCH (10:24)
[2020-11-15 14:03] VITALS: BP 103/81
[2020-11-15 18:10] VITALS: BP 87/59
[2020-11-15] MEDS: LORazepam 0.5 MG TAB PO PRN (19:43)
[2020-11-15 22:15] VITALS: BP 92/60
[2020-11-16] VITALS (26 sets, daily range): BP systolic 79–185; BP diastolic 45–147
[2020-11-16] MEDS ORDERED: DIGOXIN (250MCG/ML) 2 ML AMPULE IV ONE (04:00)
[2020-11-16] MEDS: LORazepam 0.5 MG TAB PO PRN (04:24)
[2020-11-16] MEDS ORDERED: AMIODARONE HCL 150 MG in D5W 5% 100 ML IV ONE ×2 (04:45→05:45)
[2020-11-16] MEDS ORDERED: AMIODARONE 450mg/250ml AE 250 ML IV SCH ×3 (05:00→11:00)
[2020-11-16] MEDS ORDERED: AMIODARONE HCL (50 MG/ ML) 3 ML VIAL IV ONE (05:29)
[2020-11-16] MEDS ORDERED: AMIODARONE 450mg/250ml AE 250 ML IV ONE (05:44)
[2020-11-16] MEDS: D5W/SOD CHL 0.45% 1,000 ML IV SCH (05:45)
[2020-11-16] MEDS: METOPROLOL TARTRATE 25 MG TAB PO SCH ×3 (06:00→21:53)
[2020-11-16] MEDS: PIPERACILLIN-TAZOB 3.375GM 100 ML IV SCH ×3 (06:00→21:52)
[2020-11-16 06:49] LABS: Basophils # (auto) 0 10 ^3/uL (0-0.2); Basophils % (auto) 0.1 % (0.0-2.0); Eosinophils # (auto) 0.1 10 ^3/uL (0-0.8); Eosinophils % (auto) 0.3 % (0.0-7.0); Hematocrit 39.1 % (41.0-53.0); Hemoglobin 13.4 g/dL (13.5-17.5); Lymphocytes # (auto) 0.5 10 ^3/uL (0.4-5.4); Lymphocytes % (auto) 3.3 % (10.0-50.0); Mean Corpuscular Hemoglobin 31.9 pg (28.0-32.0); Mean Corpuscular Hgb Conc. 34.4 g/dL (32.0-36.0); Mean Corpuscular Volume 92.9 fL (80.0-100.0); Monocytes # (auto) 0.4 10 ^3/uL (0-1.3); Monocytes % (auto) 2.6 % (0.0-12.0); Neutrophils # (auto) 13.5 10 ^3/uL (1.6-8.6); Neutrophils % (auto) 93.7 % (37.0-80.0); Platelet Count (auto) 184 10^3/uL (140-450); Red Blood Cells 4.21 10^6/uL (4.5-5.90); White Blood Cell 14.5 10^3/uL (4.4-10.8)
[2020-11-16 07:04] LABS: Potassium 4.8 mmol/L (3.5-5.1)
[2020-11-16 07:22] LABS: BUN/Creatinine Ratio 22.4; Bilirubin, Total 1.5 mg/dL (0.2-1.0); Calcium 7.2 mg/dL (8.5-10.1); INR 1.1 (0.9-1.15); Partial Thromboplastin Time 31.1 sec (23.0-31.2); Total Protein 5.8 g/dL (6.4-8.2)
[2020-11-16] MEDS: Glucerna Carbsteady SHAKE Vanilla 8oz PO SCH ×3 (08:00→18:00)
[2020-11-16] MEDS ORDERED: LORazepam 2MG/ML-1ML VIAL IV ONE (09:00)
[2020-11-16] MEDS: FAMOTIDINE 20 MG TAB PO SCH ×2 (10:00→21:53)
[2020-11-16] MEDS: AMIODARONE HCL 200 MG TAB PO SCH ×2 (10:00→21:53)
[2020-11-16] MEDS: CHOLECALCIFEROL (VITD3) 1,000UNIT=25mCg TAB PO SCH (10:00)
[2020-11-16] MEDS: ENOXAPARIN SOD 100 MG/1 ML SYRINGE SC SCH ×2 (10:00→21:53)
[2020-11-16] MEDS: ZINC SULFATE 220mg CAP or TAB PO SCH (10:00)
[2020-11-16] MEDS: AZITHROMYCIN 500MG/ 250ML 250 ML IV SCH (10:00)
[2020-11-16] MEDS: PANTOPRAZOLE 40 MG/10 ML VIAL INJ IV SCH (10:00)
[2020-11-16] MEDS ORDERED: SUCCINYLCHOLINE CHLORIDE 20 MG/ML 10ML VIAL IV ONE (10:08)
[2020-11-16] MEDS ORDERED: ETOMIDATE (2MG/ML) 20ML VIAL IV ONE ×2 (10:08→10:15)
[2020-11-16] MEDS ORDERED: ROCURONIUM 10MG/ML 10ML VIAL IV ONE ×3 (10:09→15:30)
[2020-11-16] MEDS ORDERED: fentaNYL Drip 2500mCg/250mlNS 250 ML IV ONE (10:15)
[2020-11-16] MEDS ORDERED: MIDAZOLAM DRIP 50 mg/50mL 50 ML IV ONE (10:15)
[2020-11-16] MEDS: fentaNYL Drip 2500mCg/250mlNS 250 ML IV SCH (10:27)
[2020-11-16] MEDS: MIDAZOLAM DRIP 50 mg/50mL 50 ML IV SCH (10:28)
[2020-11-16] MEDS: AMIODARONE 450mg/250ml AE 250 ML IV SCH (12:00)
[2020-11-16] MEDS ORDERED: PHENYLEPHRINE IV 250 ML IV ONE (12:51)
[2020-11-16] MEDS ORDERED: DOPamine 1600MCG/ML D5W 250 ML IV ONE ×2 (12:59→19:31)
[2020-11-16] MEDS ORDERED: SODIUM BICARBONATE 8.4 % INJ 50ML VIAL IV ONE ×3 (13:01→20:00)
[2020-11-16] MEDS ORDERED: SODIUM BICARBONATE 8.4% INJ 50ML SYRINGE ONE ×2 (13:02→19:44)
[2020-11-16] MEDS ORDERED: SODIUM BICARBONATE 50ML VIAL 100 ML in SOD CHL 0.45% 1,000 ML IV ONE (13:15)
[2020-11-16] MEDS ORDERED: EPINEPHrine HCL 250 ML IV SCH (13:15)
[2020-11-16] MEDS: PHENYLEPHRINE IV 250 ML IV SCH ×2 (13:34→21:44)
[2020-11-16] MEDS: ROCURONIUM BROMIDE 1,000 MG in D5W 5% 150 ML IV SCH (16:14)
[2020-11-16] MEDS: ASCORBIC ACID 500 MG TAB PO SCH (16:48)
[2020-11-16] MEDS: CLOPIDOGREL BISULFATE 75 MG TAB PO SCH (16:48)
[2020-11-16] MEDS ORDERED: VASOPRESSIN 20 UNIT/ML ONE (18:53)
[2020-11-16] MEDS: ACETAMINOPHEN 650 mg PER 20.3 mL UD GT PRN (19:45)
[2020-11-16] MEDS ORDERED: ACETAMINOPHEN 650 mg PER 20.3 mL UD ONE (19:45)
[2020-11-16] MEDS ORDERED: VASOPRESSIN 50 UNITS in D5W 5% 247.5 ML IV SCH (20:00)
[2020-11-16] MEDS: DOPamine 1600MCG/ML D5W 250 ML IV SCH (20:00)
[2020-11-16] MEDS ORDERED: SODIUM BICARBONATE 50ML VIAL 50 ML in SOD CHL 0.45% 1,000 ML IV SCH (20:00)
[2020-11-16] MEDS ORDERED: SODIUM BICARBONATE 50ML VIAL 100 ML in SOD CHL 0.45% 1,000 ML IV SCH (20:15)
[2020-11-16] MEDS: EPINEPHrine HCL 250 ML IV SCH (20:15)
[2020-11-16] MEDS: SODIUM BICARBONATE 50ML VIAL 100 ML in SOD CHL 0.45% 1,000 ML IV SCH (20:57)
[2020-11-17] VITALS (98 sets, daily range): BP systolic 50–143; BP diastolic 25–109
[2020-11-17] MEDS: D5W/SOD CHL 0.45% 1,000 ML IV SCH ×2 (02:52→21:39)
[2020-11-17] MEDS: AMIODARONE 450mg/250ml AE 250 ML IV SCH ×2 (03:00→18:00)
[2020-11-17] MEDS ORDERED: EPINEPHrine HCL 250 ML IV ONE (03:12)
[2020-11-17] MEDS: PHENYLEPHRINE IV 250 ML IV SCH ×2 (03:13→04:56)
[2020-11-17] MEDS ORDERED: DOPamine 1600MCG/ML D5W 250 ML IV ONE (04:14)
[2020-11-17 04:17] LABS: Hematocrit 41.2 % (41.0-53.0); Hemoglobin 13.4 g/dL (13.5-17.5); Mean Corpuscular Hgb Conc. 32.5 g/dL (32.0-36.0); Mean Corpuscular Volume 98.5 fL (80.0-100.0); Platelet Count (auto) 106 10^3/uL (140-450); Red Blood Cells 4.18 10^6/uL (4.5-5.90); Red Cell Distribution Width 14.2 % (11.8-14.3); White Blood Cell 24.1 10^3/uL (4.4-10.8)
[2020-11-17 04:36] LABS: Basophils % (manual) 0 (0.0-2.0); Blast Cells 0; Eosinophils % (manual) 0 (0-7); Lymphocytes % (manual) 0 (10.0-50.0); Metamyelocytes % 0; Promyelocytes % 0; Reactive Lymphocytes 0
[2020-11-17] MEDS: EPINEPHrine HCL 250 ML IV SCH (04:58)
[2020-11-17] MEDS: DOPamine 1600MCG/ML D5W 250 ML IV SCH (04:59)
[2020-11-17 05:01] LABS: Potassium 5.1 mmol/L (3.5-5.1)
[2020-11-17 05:23] LABS: Albumin 1.6 g/dL (3.4-5.0); BUN/Creatinine Ratio 11.6; CRP High Sensitivity 12.6 mg/dL (< 0.3); Total Protein 5.1 g/dL (6.4-8.2)
[2020-11-17 05:28] LABS: Band Neutrophils % (manual) 3; Monocytes % (manual) 1 (0-12); Myelocytes % 2
[2020-11-17] MEDS ORDERED: NOREPINEPHRINE BITARTRATE 2 ML IV ONE (05:39)
[2020-11-17 05:45] LABS: Calcium 5.8 mg/dL (8.5-10.1)
[2020-11-17] MEDS: METOPROLOL TARTRATE 25 MG TAB PO SCH ×3 (06:00→21:39)
[2020-11-17] MEDS: PIPERACILLIN-TAZOB 3.375GM 100 ML IV SCH ×2 (06:27→15:00)
[2020-11-17] MEDS: SODIUM BICARBONATE 50ML VIAL 100 ML in SOD CHL 0.45% 1,000 ML IV SCH ×2 (07:15→18:25)
[2020-11-17] MEDS: NOREPINEPHRINE 8 MG/250ML KIT 250 ML IV SCH (07:15)
[2020-11-17] MEDS: ROCURONIUM BROMIDE 1,000 MG in D5W 5% 150 ML IV SCH (09:35)
[2020-11-17] MEDS ORDERED: VASOPRESSIN 50 UNITS in D5W 5% 247.5 ML IV SCH (09:45)
[2020-11-17] MEDS ORDERED: NOREPINEPHRINE BITARTRATE 16 MG in SODIUM CHL 0.9% 250 ML IV SCH (09:45)
[2020-11-17] MEDS ORDERED: PHENYLEPHRINE INJ 40 MG in SODIUM CHL 0.9% 250 ML IV SCH (09:45)
[2020-11-17] MEDS: PANTOPRAZOLE 40 MG/10 ML VIAL INJ IV SCH (10:00)
[2020-11-17] MEDS: AZITHROMYCIN 500MG/ 250ML 250 ML IV SCH (10:00)
[2020-11-17] MEDS: CHOLECALCIFEROL (VITD3) 1,000UNIT=25mCg TAB PO SCH (10:00)
[2020-11-17] MEDS: ASCORBIC ACID 500 MG TAB PO SCH (10:00)
[2020-11-17] MEDS: AMIODARONE HCL 200 MG TAB PO SCH ×2 (10:00→21:38)
[2020-11-17] MEDS: ENOXAPARIN SOD 100 MG/1 ML SYRINGE SC SCH ×2 (10:00→21:39)
[2020-11-17] MEDS: ZINC SULFATE 220mg CAP or TAB PO SCH (10:00)
[2020-11-17] MEDS: FAMOTIDINE 20 MG TAB PO SCH ×2 (10:00→21:39)
[2020-11-17] MEDS: CLOPIDOGREL BISULFATE 75 MG TAB PO SCH (10:00)
[2020-11-17] MEDS: fentaNYL Drip 2500mCg/250mlNS 250 ML IV SCH ×2 (10:15→23:22)
[2020-11-17] MEDS: MIDAZOLAM DRIP 50 mg/50mL 50 ML IV SCH (12:00)
[2020-11-17] MEDS: NOREPINEPHRINE BITARTRATE IV SCH (13:00)
[2020-11-17] MEDS: SODIUM CHL 0.9% IV SCH (13:00)
[2020-11-17] MEDS: DOPamine 3200MCG/ML 250 ML IV SCH (13:00)
[2020-11-17] MEDS: D5W 5% IV SCH (13:00)
[2020-11-17] MEDS: EPINEPHrine HCL INJECTION 8 MG in D5W 5% 250 ML IV SCH (13:00)
[2020-11-17] MEDS: VASOPRESSIN IV SCH (13:00)
[2020-11-17 13:04] LABS: INR 2.06 (0.9-1.15)
[2020-11-17] MEDS: PHENYLEPHRINE INJ 80 MG in SODIUM CHL 0.9% 250 ML IV SCH (14:07)
[2020-11-17] MEDS ORDERED: NOREPINEPHRINE BITARTRATE IV SCH (14:30)
[2020-11-17] MEDS ORDERED: SODIUM CHL 0.9% IV SCH (14:30)
[2020-11-17] MEDS: ACETAMINOPHEN 650 mg PER 20.3 mL UD GT PRN (15:00)
[2020-11-17] MEDS ORDERED: VANCOMYCIN PER PHARMACY 0 MG IV SCH (15:45)
[2020-11-17] MEDS ORDERED: VANCOMYCIN 1GM/250ML 250 ML IV ONE (16:00)
[2020-11-18] VITALS (95 sets, daily range): BP systolic 84–169; BP diastolic 23–119
[2020-11-18] MEDS: METOPROLOL TARTRATE 25 MG TAB PO SCH ×3 (06:00→21:23)
[2020-11-18] MEDS: ROCURONIUM BROMIDE 1,000 MG in D5W 5% 150 ML IV SCH (06:40)
[2020-11-18] MEDS: SODIUM BICARBONATE 50ML VIAL 100 ML in SOD CHL 0.45% 1,000 ML IV SCH ×2 (06:44→16:10)
[2020-11-18] MEDS: D5W 5% IV SCH (07:00)
[2020-11-18] MEDS: VASOPRESSIN IV SCH (07:00)
[2020-11-18] MEDS: AMIODARONE 450mg/250ml AE 250 ML IV SCH (09:00)
[2020-11-18] MEDS: PANTOPRAZOLE 40 MG/10 ML VIAL INJ IV SCH (09:11)
[2020-11-18] MEDS: AZITHROMYCIN 500MG/ 250ML 250 ML IV SCH (09:11)
[2020-11-18] MEDS: ENOXAPARIN SOD 100 MG/1 ML SYRINGE SC SCH (09:15)
[2020-11-18] MEDS: PHENYLEPHRINE INJ 80 MG in SODIUM CHL 0.9% 250 ML IV SCH ×2 (09:15→19:59)
[2020-11-18] MEDS: ASCORBIC ACID 500 MG TAB PO SCH (10:00)
[2020-11-18] MEDS: ZINC SULFATE 220mg CAP or TAB PO SCH (10:00)
[2020-11-18] MEDS: FAMOTIDINE 20 MG TAB PO SCH ×2 (10:00→21:23)
[2020-11-18] MEDS: AMIODARONE HCL 200 MG TAB PO SCH ×2 (10:00→21:23)
[2020-11-18] MEDS: CLOPIDOGREL BISULFATE 75 MG TAB PO SCH ×2 (10:00→15:49)
[2020-11-18] MEDS: CHOLECALCIFEROL (VITD3) 1,000UNIT=25mCg TAB PO SCH (10:00)
[2020-11-18] MEDS ORDERED: SODIUM BICARBONATE 8.4% INJ 50ML SYRINGE ONE (10:46)
[2020-11-18] MEDS: DOPamine 3200MCG/ML 250 ML IV SCH (11:09)
[2020-11-18] MEDS ORDERED: SODIUM BICARBONATE 8.4 % INJ 50ML VIAL IV ONE (11:15)
[2020-11-18 11:48] LABS: Hematocrit 31.7 % (41.0-53.0); Hemoglobin 10.7 g/dL (13.5-17.5); Mean Corpuscular Hemoglobin 32.1 pg (28.0-32.0); Mean Corpuscular Hgb Conc. 33.7 g/dL (32.0-36.0); Mean Corpuscular Volume 95.3 fL (80.0-100.0); Platelet Count (auto) 73 10^3/uL (140-450); Red Blood Cells 3.33 10^6/uL (4.5-5.90); Red Cell Distribution Width 14.6 % (11.8-14.3); White Blood Cell 13.7 10^3/uL (4.4-10.8)
[2020-11-18 11:56] LABS: Basophils % (manual) 0 (0.0-2.0); Blast Cells 0; Eosinophils % (manual) 0 (0-7); Metamyelocytes % 0; Promyelocytes % 0; Reactive Lymphocytes 0
[2020-11-18 12:03] LABS: Anion Gap 12 (5-15); Blood Urea Nitrogen 34 mg/dL (7-18); Carbon Dioxide 15 mmol/L (21-32); Chloride 109 mmol/L (98-107); Glucose 168 mg/dL (74-106); Potassium 4.3 mmol/L (3.5-5.1); Sodium 136 mmol/L (136-145)
[2020-11-18 12:06] LABS: INR 2.46 (0.9-1.15)
[2020-11-18 12:25] LABS: Alanine Aminotransferase 7226 U/L (16-61); Alkaline Phosphatase 151 U/L (45-117); Aspartate Aminotransferase 4848 U/L (15-37); Bilirubin, Total 2.9 mg/dL (0.2-1.0); GFR African American 24 mL/min; GFR Non-African American 20 mL/min; Total Protein 3.2 g/dL (6.4-8.2)
[2020-11-18 12:36] LABS: Calcium < 5.0 mg/dL (8.5-10.1)
[2020-11-18] MEDS: EPINEPHrine HCL INJECTION 8 MG in D5W 5% 250 ML IV SCH (13:45)
[2020-11-18 14:11] LABS: Band Neutrophils % (manual) 12; Lymphocytes % (manual) 5 (10.0-50.0); Monocytes % (manual) 5 (0-12); Myelocytes % 1
[2020-11-18] MEDS: NOREPINEPHRINE BITARTRATE IV SCH (14:30)
[2020-11-18] MEDS: SODIUM CHL 0.9% IV SCH (14:30)
[2020-11-18] MEDS ORDERED: CALCIUM GLUC 4.65meq/50ml D5AE 50 ML IV ONE ×2 (16:00→23:16)
[2020-11-18] MEDS: CALCIUM GLUC 4.65meq/50ml D5AE 50 ML IV SCH ×2 (16:06→16:45)
[2020-11-18] MEDS ORDERED: VANCOMYCIN 1GM/250ML 250 ML IV ONE (17:15)
[2020-11-18] MEDS: D5W/SOD CHL 0.45% 1,000 ML IV SCH (17:45)
[2020-11-18] MEDS: MIDAZOLAM DRIP 50 mg/50mL 50 ML IV SCH (18:28)
[2020-11-18] MEDS: ALBUMIN 25% 100 ML IV SCH (18:34)
[2020-11-18] MEDS: ACETAMINOPHEN 650 mg PER 20.3 mL UD GT PRN (21:41)
[2020-11-18] MEDS: CALCIUM GLUC 4.65meq/50ml D5AE 50 ML IV PRN (23:19)
[2020-11-19] VITALS (57 sets, daily range): BP systolic 77–122; BP diastolic 45–89
[2020-11-19] MEDS: AMIODARONE 450mg/250ml AE 250 ML IV SCH
[2020-11-19] MEDS: ALBUMIN 25% 100 ML IV SCH ×2 (01:24→09:45)
[2020-11-19] MEDS: ROCURONIUM BROMIDE 1,000 MG in D5W 5% 150 ML IV SCH (03:45)
[2020-11-19] MEDS: SODIUM BICARBONATE 50ML VIAL 100 ML in SOD CHL 0.45% 1,000 ML IV SCH (04:33)
[2020-11-19] MEDS ORDERED: CALCIUM GLUC 4.65meq/50ml D5AE 50 ML IV ONE (04:46)
[2020-11-19] MEDS: CALCIUM GLUC 4.65meq/50ml D5AE 50 ML IV PRN ×2 (04:47→13:00)
[2020-11-19] MEDS: MIDAZOLAM DRIP 50 mg/50mL 50 ML IV SCH (04:48)
[2020-11-19] MEDS: METOPROLOL TARTRATE 25 MG TAB PO SCH (06:00)
[2020-11-19] MEDS: DOPamine 3200MCG/ML 250 ML IV SCH (06:53)
[2020-11-19 07:03] LABS: Hematocrit 30.4 % (41.0-53.0); Hemoglobin 10.4 g/dL (13.5-17.5); Mean Corpuscular Hemoglobin 32.2 pg (28.0-32.0); Mean Corpuscular Hgb Conc. 34.3 g/dL (32.0-36.0); Platelet Count (auto) 64 10^3/uL (140-450); Red Blood Cells 3.23 10^6/uL (4.5-5.90); Red Cell Distribution Width 14.2 % (11.8-14.3); White Blood Cell 8.8 10^3/uL (4.4-10.8)
[2020-11-19 07:11] LABS: Basophils % (manual) 0 (0.0-2.0); Blast Cells 0; Eosinophils % (manual) 0 (0-7); Promyelocytes % 0; Reactive Lymphocytes 0
[2020-11-19 07:37] LABS: Albumin 2.1 g/dL (3.4-5.0); BUN/Creatinine Ratio 8.9; Bilirubin, Total 5.2 mg/dL (0.2-1.0); CRP High Sensitivity 12.3 mg/dL (< 0.3); Magnesium 2.1 mg/dL (1.6-2.6); Total Protein 4.4 g/dL (6.4-8.2)
[2020-11-19 08:37] LABS: Calcium 5.6 mg/dL (8.5-10.1); Phosphorus 9.3 mg/dL (2.5-4.90)
[2020-11-19] MEDS: EPINEPHrine HCL INJECTION 8 MG in D5W 5% 250 ML IV SCH (09:45)
[2020-11-19] MEDS: FAMOTIDINE 20 MG TAB PO SCH (10:00)
[2020-11-19] MEDS: AMIODARONE HCL 200 MG TAB PO SCH (10:00)
[2020-11-19] MEDS: AZITHROMYCIN 500MG/ 250ML 250 ML IV SCH (10:00)
[2020-11-19] MEDS: ZINC SULFATE 220mg CAP or TAB PO SCH (10:00)
[2020-11-19] MEDS: PANTOPRAZOLE 40 MG/10 ML VIAL INJ IV SCH (10:00)
[2020-11-19] MEDS: ASCORBIC ACID 500 MG TAB PO SCH (10:00)
[2020-11-19] MEDS: CHOLECALCIFEROL (VITD3) 1,000UNIT=25mCg TAB PO SCH (10:00)
[2020-11-19] MEDS: CLOPIDOGREL BISULFATE 75 MG TAB PO SCH (10:00)
[2020-11-19] MEDS: fentaNYL Drip 2500mCg/250mlNS 250 ML IV SCH (10:15)
[2020-11-19] MEDS: D5W 5% IV SCH (11:15)
[2020-11-19] MEDS: VASOPRESSIN IV SCH (11:15)
[2020-11-19 11:44] LABS: Lymphocytes % (manual) 12 (10.0-50.0); Metamyelocytes % 2; Monocytes % (manual) 4 (0-12); Myelocytes % 1
[2020-11-19 11:47] LABS: Band Neutrophils % (manual) 20
[2020-11-19] MEDS: D5W/SOD CHL 0.45% 1,000 ML IV SCH (13:45)
[2020-11-19] MEDS ORDERED: BUMETANIDE 2.5mg/10ml (0.25 mg/ml) INJ IV ONE (18:15)
== END 2020-11-19 23:30 | DRG 720 ==
LOC: ER 05:39 → EDBD 05:39 → OVERFLOW 05:40 → ICU WEST 11-16 18:51
PROVIDERS: ADMIT Internal Medicine; ATTEND Internal Medicine
PROC: XW033E5 Introduction of Remdesivir Anti-infective into Peripheral Vein, Percutaneous Approach, New Technology Group 5 (ICD-10-PCS; 2020-11-04)
PROC: XW13325 Transfusion of Convalescent Plasma (Nonautologous) into Peripheral Vein, Percutaneous Approach, New Technology Group 5 (ICD-10-PCS; 2020-11-07)
PROC: 5A09457 Assistance with Respiratory Ventilation, 24-96 Consecutive Hours, Continuous Positive Airway Pressure (ICD-10-PCS; 2020-11-14)
PROC: B44LZZZ Ultrasonography of Femoral Artery (ICD-10-PCS; principal; 2020-11-16)
PROC: 5A1945Z Respiratory Ventilation, 24-96 Consecutive Hours (ICD-10-PCS; 2020-11-16)
PROC: 0BH17EZ Insertion of Endotracheal Airway into Trachea, Via Natural or Artificial Opening (ICD-10-PCS; 2020-11-16)
PROC: 04HY32Z Insertion of Monitoring Device into Lower Artery, Percutaneous Approach (ICD-10-PCS; 2020-11-16)
PROC: 5A12012 Performance of Cardiac Output, Single, Manual (ICD-10-PCS; 2020-11-16)
PROC: 02HV33Z Insertion of Infusion Device into Superior Vena Cava, Percutaneous Approach (ICD-10-PCS; 2020-11-16)
PROC: B548ZZA Ultrasonography of Superior Vena Cava, Guidance (ICD-10-PCS; 2020-11-16)
PROC: 4A133B1 Monitoring of Arterial Pressure, Peripheral, Percutaneous Approach (ICD-10-PCS; 2020-11-16)
PROC: 4A133J1 Monitoring of Arterial Pulse, Peripheral, Percutaneous Approach (ICD-10-PCS; 2020-11-16)
DX: A41.89 Other specified sepsis (principal); U07.1 COVID-19; J96.01 Acute respiratory failure with hypoxia; J12.82 Pneumonia due to coronavirus disease 2019; I95.9 Hypotension, unspecified; I10 Essential (primary) hypertension; I25.10 Atherosclerotic heart disease of native coronary artery without angina pectoris; Z66 Do not resuscitate; E78.5 Hyperlipidemia, unspecified; E44.1 Mild protein-calorie malnutrition; D68.9 Coagulation defect, unspecified; E66.9 Obesity, unspecified; F17.200 Nicotine dependence, unspecified, uncomplicated; I48.91 Unspecified atrial fibrillation; E87.5 Hyperkalemia; F41.9 Anxiety disorder, unspecified; J98.11 Atelectasis; R65.21 Severe sepsis with septic shock; Z80.0 Family history of malignant neoplasm of digestive organs; Z80.43 Family history of malignant neoplasm of testis; Z80.42 Family history of malignant neoplasm of prostate; Z82.49 Family history of ischemic heart disease and other diseases of the circulatory system; Z83.3 Family history of diabetes mellitus; Z98.61 Coronary angioplasty status; Z86.711 Personal history of pulmonary embolism; Z86.718 Personal history of other venous thrombosis and embolism; Z68.31 Body mass index [BMI] 31.0-31.9, adult; Z79.02 Long term (current) use of antithrombotics/antiplatelets
CPT/HCPCS: 36415; 36600; 71045; 76604; 80048; 80053; 80076; 80202; 82040; 82310; 82728; 82805; 83615; 83735; 83880; 84100; 84484; 85007; 85025; 85027; 85379; 85610; 85730; 86141; 86850; 86900; 86901; 87070; 87081; 87186; 87205; 87426; 93005; 93306; 93970; 94002; 94003; 94660; 96365; 96367; 96368; 96375; 99291; A4615; C9113; G0378; J0171; J0330; J0610; J0696; J1100; J1265; J2250; J2405; J2543; J7060; P9047